=== PATIENT | female | born 1985 | race Caucasian/White ===

== ENCOUNTER 2018-02-03 19:11 | Emergency (ER) | payer OTHER ==
[~2018-02-03] VITALS: Ht 157.5 cm; Wt 63.5 kg
[~2018-02-03 19:11] MED LIST: BACTRIM DS TAB1 EACH PO; HYDROCODON-ACE1 EACH PO; IBUPROFEN 800800 M1 PO; NOHOMEMEDICATIONS; NORCO 5-325 TA1 EACH PO; PENICILLIN VK500 M1 PO
[2018-02-03] MEDS ORDERED: TRAMADOL 50 MG50 MG PO (19:54)
[2018-02-03] MEDS ORDERED: NAPROSYN500 MG PO (19:54)
[2018-02-03 20:13] VITALS: BP 107/64
[2018-02-04] MEDS ORDERED: PREDNISONE 20 M20 M1 PO (20:23)
== END 2018-02-03 20:16 | disposition home or self-care (01) ==
LOC: M.ERS 19:11
DX: L25.2 Unspecified contact dermatitis due to dyes (principal); F17.210 Nicotine dependence, cigarettes, uncomplicated

== ENCOUNTER 2018-02-04 19:06 | Emergency (ER) | payer OTHER, MEDICAID ==
[~2018-02-04] VITALS: Ht 157.5 cm; Wt 63.5 kg
[~2018-02-04 19:06] MED LIST changes: +NAPROSYN500 MG PO; +TRAMADOL 50 MG50 MG PO
[2018-02-04] MEDS ORDERED: PREDNISONE 20 M20 M1 PO (20:23)
[2018-02-04 20:48] VITALS: BP 131/88
== END 2018-02-04 20:52 | disposition home or self-care (01) ==
LOC: M.ERS 19:06
DX: L53.9 Erythematous condition, unspecified (principal); T78.49XA Other allergy, initial encounter; F17.210 Nicotine dependence, cigarettes, uncomplicated; X58.XXXA Exposure to other specified factors, initial encounter